=== PATIENT | female | born 1990 | race Caucasian/White ===

== ENCOUNTER → 2017-01-01 | Outpatient (CLI) | payer BC, OTHER ==
--- NOTE | 2017-01-01 15:48 | REP ---
Chest two views HISTORY: Cough Comparison: None The lungs are clear. The heart is normal in size. The pulmonary vasculature is normal in appearance. The bony structure is intact. IMPRESSION: No acute disease. Signed by Joey Bain MD 01/01/2017 03:40 P
[2017-01-01 15:52] LABS: BASO % 0.4 % (0.0-1.0); EOS # 0.1 K/mm3 (0.0-0.50); EOS % 1.2 % (0.0-3.0); LARGE UNSTAINED CELL # 0.1 K/mm3 (0.0-0.4); LARGE UNSTAINED CELL % 1.4 % (0.0-4.0); LYMPH # 1.9 K/mm3 (1.5-6.5); LYMPH % 26.1 % (24.0-44.0); MEAN CORPUSCULAR HEMOGLOBIN 29.3 pg (27.0-33.0); MEAN CORPUSCULAR HGB CONC 33.7 g/dl (32.0-36.5); MEAN CORPUSCULAR VOLUME 86.8 fl (80.0-96.0); MONO # 0.4 K/mm3 (0.0-0.8); MONO % 5.5 % (0.0-5.0); NEUTROPHILS # 4.6 K/mm3 (1.8-7.7); NEUTROPHILS % 65.6 % (36.0-66.0); PLATELET COUNT, AUTOMATED 189 k/mm3 (150-450); RED CELL DISTRIBUTION WIDTH 13.3 % (11.5-14.5)
[2017-01-02 07:47] LABS: CONTROL LINE MONO INT CTR LINE PRESENT
== END ==
LOC: M LAB 15:15
PROVIDERS: ATTEND Physician Assistant
DX: R05 Cough (principal)

== ENCOUNTER → 2017-08-06 | Outpatient (CLI) | payer BC ==
[2017-08-06 13:04] LABS: TOTAL PROTEIN 7.3 GM/DL (6.4-8.2)
[2017-08-11 12:33] LABS: ALBUMIN 4.23 GM/DL (3.29-5.55); ALBUMIN % 57.9 % (55.8-66.1)
[2017-08-11 12:34] LABS: GAMMA GLOBULIN % 17.3 % (11.1-18.8)
[2017-08-12 00:06] LABS: SJOGREN'S ANTI SS-A <0.2 AI (0.0-0.9); SJOGREN'S ANTI SS-B 0.2 AI (0.0-0.9); VITAMIN E LEVEL 9.5 mg/L (5.3-16.8)
== END ==
LOC: M LAB 10:53
PROVIDERS: ATTEND Psychiatry & Neurology Neurology
DX: R51 Headache (principal)